=== PATIENT | male | born 1950 | race Caucasian/White ===

== ENCOUNTER 2021-12-23 00:02 | Observation (INO) | payer MEDICARE ==
[2021-12-23 00:22] VITALS: BMI 26.6
[2021-12-23] MEDS ORDERED: Calcium Carbonate 500 MG ChewTAB PO PRN (00:35)
[2021-12-23] MEDS ORDERED: Acetaminophen 325 MG TAB PO PRN (00:35)
[2021-12-23] MEDS ORDERED: Ondansetron PF 4 MG/2 ML Vial IVP PRN (00:35)
[2021-12-23] MEDS ORDERED: Ketorolac Tromethamine 30 MG/ML VIAL IVP SCH (00:45)
[2021-12-23] MEDS ORDERED: Cephalexin 500 MG CAP PO SCH (00:45)
[2021-12-23] MEDS ORDERED: Metoclopramide HCl 10 MG/2 ML VIAL IVP SCH (00:45)
[2021-12-23] MEDS ORDERED: diphenhydrAMINE 50 MG/ML VIAL IVP SCH (00:45)
[2021-12-23] MEDS: Lactated Ringer's 500 ML IV SCH ×10 (01:13→11:07)
[2021-12-23] MEDS: Amoxicillin/Potassium Clav 875 MG TAB PO SCH ×2 (01:23→12:51)
[2021-12-23] MEDS: Oxymetazoline HCl 0.05% ( 15 ML ) NASAL SCH ×2 (01:23→12:37)
[2021-12-23 05:13] LABS: #Basophils 0.1 10x3/uL (0.0-0.2); #Eosinphils 0.1 10x3/uL (0.0-0.5); #Monocytes 1.4 10x3/uL (0.0-1.1); #Neutrophils 7.8 10x3/uL (1.5-8.4); %Basophils 0.4 % (0.0-2.0); %Eosinophils 0.9 % (0.0-6.0); %Lymphocytes 19.3 % (18.0-47.0); %Monocytes 11.9 % (0.0-10.0); %Neutrophils 67.1 % (40.0-75.0); Hemoglobin 12.3 g/dL (13.5-17.5); Mean Corpuscular HGB CONC 33.7 g/dL (32.0-36.0); Mean Corpuscular Hemoglobin 31.6 pg (27.0-33.0); Mean Corpuscular Volume 93.8 fl (81.2-95.1); Mean Platelet Volume 9.8 fl (7.4-10.4); Platelet Count 182 10x3/uL (150-450); RBC Distribution Width 13.2 % (11.5-14.5); Red Blood Cell (RBC) Count 3.89 10x6/uL (4.32-5.72); White Blood Cell (WBC) Count 11.6 10x3/uL (3.5-10.5)
[2021-12-23 05:55] LABS: Anion Gap 11 mmol/L (10-20); BUN (Urea Nitrogen) 13 mg/dL (8.4-25.7); Calc. Creatinine Clearance 64 mL/min (70-130); Calcium 10.8 mg/dL (7.8-10.44); Carbon Dioxide 23 mmol/L (23-31); Chloride 112 mmol/L (98-107); Glucose 95 mg/dL (80-115); Potassium 3.9 mmol/L (3.5-5.1); Sodium 142 mmol/L (136-145)
[2021-12-23] MEDS ORDERED: Fluticasone Propionate Nasal Spray 16 gm Bottle NASAL SCH (09:00)
[2021-12-23] MEDS ORDERED: lamoTRIgine 100 MG TAB PO SCH (09:00)
[2021-12-23] MEDS ORDERED: FLUoxetine HCl 20 MG CAP PO SCH (09:00)
[2021-12-23] MEDS ORDERED: Enoxaparin Sodium 40 MG/0.4 ML SYRINGE SC SCH (09:00)
[2021-12-23] MEDS ORDERED: Famotidine 20 MG TAB PO SCH (09:00)
[2021-12-23 12:52] VITALS: TEMP 97.5
[2021-12-23 16:50] VITALS: BP 113/69
[2021-12-23] MEDS ORDERED: Lorazepam 1 MG TAB PO SCH (21:00)
== END 2021-12-23 18:32 | disposition home or self-care (01) ==
LOC: CSHTELE 00:02
PROVIDERS: ADMIT Student in an Organized Health Care Education/Training Program; ATTEND Family Medicine
DX: R41.0 Disorientation, unspecified (principal); J32.9 Chronic sinusitis, unspecified; F31.9 Bipolar disorder, unspecified; F42.9 Obsessive-compulsive disorder, unspecified; N18.30 Chronic kidney disease, stage 3 unspecified; Z79.899 Other long term (current) drug therapy
CPT/HCPCS: 70551; 80048; 84484; 85025; 96372; 96374; 96375; 97116; 97139; 97535; G0378; J1200; J1650; J1885; J7120

== ENCOUNTER 2022-05-28 13:27 | Emergency (ER) | payer MEDICARE ==
[2022-05-28] MEDS ORDERED: Fluorescein Opthalmic Strip ONE (13:54)
[2022-05-28] MEDS ORDERED: Tetracaine 0.5% PF 4 ML BOT ONE (13:54)
[2022-05-28] MEDS ORDERED: AcetaZOLAMIDE 250 MG TAB PO SCH (14:30)
[2022-05-28] MEDS ORDERED: Pilocarpine 2% Ophth Drops 15 ML BOT R EYE SCH (14:30)
[2022-05-28] MEDS ORDERED: AcetaZOLAMIDE ER 500 MG CAP PO SCH (14:30)
[2022-05-28] MEDS ORDERED: Timolol 0.5% Ophth Soln 5 ml Bottle R EYE SCH (14:30)
== END 2022-05-28 14:56 | disposition home or self-care (01) ==
LOC: CSHERS 13:27
DX: H54.61 Unqualified visual loss, right eye, normal vision left eye (principal)
CPT/HCPCS: 99283; J7620

== ENCOUNTER 2023-03-25 15:35 | Inpatient (IN) | payer MEDICARE ==
[~2023-03-25 15:35] MED LIST: Iopamidol 370 76% 100 ML VIAL ONE
[2023-03-25 16:15] LABS: Actual Bicarbonate (HCO3v) 26.8 mEq/L (22-28); Base Excess 1.3 mEq/L (-2 - +2); Calcium, Ionized (venous) 1.37 mmol/L (1.16-1.32); Chloride (VBG) 108 mmol/L (98-106); Hematocrit-VBG 39 % (42.0-52.0); Hemoglobin (Hb) 13.1 g/dL (12.6-17.4); Potassium (VBG) 4.09 mmol/L (3.70-5.30); Puncture Site Other Site; RapidComm Collect By CBN; Sodium 142.7 mmol/L (133-146); pH (venous) 7.384 (7.32-7.43)
[2023-03-25 16:22] LABS: #Eosinphils 0.2 10x3/uL (0.0-0.5); #Monocytes 0.6 10x3/uL (0.0-1.1); #Neutrophils 4.1 10x3/uL (1.5-8.4); %Basophils 0.6 % (0.0-2.0); %Eosinophils 3.7 % (0.0-6.0); %Lymphocytes 22.5 % (18.0-47.0); %Monocytes 9.4 % (0.0-10.0); %Neutrophils 63.5 % (40.0-75.0); Hemoglobin 12.2 g/dL (13.5-17.5); Mean Corpuscular HGB CONC 33.5 g/dL (32.0-36.0); Mean Corpuscular Hemoglobin 32.2 pg (27.0-33.0); Mean Platelet Volume 10.1 fl (7.4-10.4); Platelet Count 174 10x3/uL (150-450); RBC Distribution Width 12.7 % (11.5-14.5); Red Blood Cell (RBC) Count 3.79 10x6/uL (4.32-5.72); White Blood Cell (WBC) Count 6.5 10x3/uL (3.5-10.5)
[2023-03-25 16:35] LABS: ALT (SGPT) 10 U/L (8-55); AST (SGOT) 14 U/L (5-34); Albumin 3.9 g/dL (3.4-4.8); Alkaline Phosphatase 76 U/L (40-110); Anion Gap 15 mmol/L (10-20); BUN (Urea Nitrogen) 21 mg/dL (8.4-25.7); Bilirubin, Total 0.2 mg/dL (0.2-1.2); Calc. Creatinine Clearance 0 mL/min (70-130); Calcium 10.5 mg/dL (7.8-10.44); Carbon Dioxide 22 mmol/L (23-31); Chloride 109 mmol/L (98-107); Estimated GFR 39; Globulin 2.4 g/dL (2.4-3.5); Glucose 105 mg/dL (83-110); Potassium 4.2 mmol/L (3.5-5.1); Protein, Total 6.3 g/dL (5.8-8.1); Sodium 142 mmol/L (136-145)
[2023-03-25 18:38] LABS: Bilirubin Neg (Negative); Blood, Urine Negative (Negative); Clarity Clear (Clear); Glucose, Urine (Dipstick) Normal (Negative); Ketone, Urine Negative (Negative); Leukocyte Negative (Negative); Nitrite Negative (Negative); Protein, Urine (Dipstick) Negative (Neg-Trace); Urobilinogen Normal mg/dL (Less than 2)
[2023-03-25 18:52] LABS: Bacteria/HPF Rare-Few HPF (None Seen); CAUTI Indications for Culture Alt mental st,lethar; RBC/HPF None Seen HPF (0-3); Squamous Epithelial 0-3 HPF (0-3); Urine Culture Reflex No No; WBC/HPF 0-3 HPF (0-3)
[2023-03-25] MEDS ORDERED: Acetaminophen 325 MG TAB PO PRN (19:14)
[2023-03-25] MEDS ORDERED: Ondansetron PF 4 MG/2 ML Vial IVP PRN (19:14)
[2023-03-25] MEDS ORDERED: Senokot S 8.6-50 MG TAB PO PRN (19:14)
[2023-03-25] MEDS ORDERED: Calcium Carbonate 500 MG ChewTAB PO PRN (19:14)
[2023-03-25] MEDS ORDERED: Lactated Ringer's 1,000 ML IV SCH (19:15)
[2023-03-25 19:22] LABS: Amphetamine Not Detected (NotDetected); Barbiturates Screen Not Detected (NotDetected); Benzodiazepine Screen Detected (NotDetected); Cocaine Metabolite Screen Not Detected (NotDetected); Methadone Not Detected (NotDetected); Methamphetamine Not Detected (NotDetected); Opiate Screen Not Detected (NotDetected); Oxycodone Screen Not Detected (NotDetected); Phencyclidine (PCP) Not Detected (NotDetected); THC/Cannabinoid Screen Not Detected (NotDetected); Tricyclic Screen Not Detected (NotDetected)
[2023-03-25 21:58] VITALS: BMI 27.6
[2023-03-25] MEDS ORDERED: Lorazepam 1 MG TAB PO SCH (22:00)
[2023-03-25] MEDS ORDERED: OLANZapine 5 MG TAB PO SCH (22:00)
[2023-03-25] MEDS ORDERED: Lidocaine 4% Patch TD SCH (22:00)
[2023-03-26 05:27] LABS: Anion Gap 9 mmol/L (10-20); BUN (Urea Nitrogen) 18 mg/dL (8.4-25.7); CK (CPK) 23 U/L (30-200); Calc. Creatinine Clearance 57 mL/min (70-130); Calcium 10.6 mg/dL (7.8-10.44); Carbon Dioxide 26 mmol/L (23-31); Cardiac Risk 4.6 (Less than 4.5); Chloride 115 mmol/L (98-107); Cholesterol 134 mg/dl (< 200 Desired); Estimated GFR 48; Glucose 85 mg/dL (83-110); HDL Cholesterol 29 mg/dL (>60 Neg Risk); LDL Cholesterol, Calculated 80 mg/dL; Potassium 4.3 mmol/L (3.5-5.1); Sodium 146 mmol/L (136-145); Triglycerides 126 mg/dL (Less than 150)
[2023-03-26] MEDS ORDERED: FLUoxetine HCl 20 MG CAP PO SCH (09:00)
[2023-03-26] MEDS ORDERED: lamoTRIgine 100 MG TAB PO SCH ×2 (09:00→22:00)
[2023-03-26] MEDS ORDERED: Transdermal Patch Removal TOP SCH (10:00)
[2023-03-26] MEDS ORDERED: OLANZapine 5 MG TAB PO SCH (21:00)
[2023-03-26] MEDS: Atorvastatin Calcium 40 MG TAB PO SCH (22:50)
[2023-03-26] MEDS: Lorazepam 1 MG TAB PO SCH (22:51)
[2023-03-27] MEDS ORDERED: Metoprolol Tartrate 5 MG/5 ML VIAL IVP SCH (00:15)
[2023-03-27] MEDS ORDERED: Magnesium 2 GM/50 ML(in water) 2 GM in Premix Bag 1 BAG IVPB SCH (00:15)
[2023-03-27] MEDS: Apixaban 5 MG TAB PO SCH ×2 (00:47→12:53)
[2023-03-27] MEDS ORDERED: dilTIAZem 25 MG/5 ML VIAL SLOW IVP SCH (01:15)
[2023-03-27] MEDS ORDERED: Digoxin 0.5 MG/2 ML AMP SLOW IVP SCH ×2 (04:45)
[2023-03-27] MEDS ORDERED: Sodium Chloride 0.9% 500 ML IV SCH (05:00)
[2023-03-27] MEDS: Aspirin 81 mg Enteric Coated Tablet PO SCH (08:48)
[2023-03-27] MEDS: dilTIAZem CD 120 MG CAP PO SCH (08:49)
[2023-03-27 11:47] LABS: Magnesium 2.4 mg/dL (1.6-2.6)
[2023-03-27] MEDS ORDERED: FLUoxetine HCl 20 MG CAP PO SCH ×2 (13:00→21:00)
[2023-03-27] MEDS: Lorazepam 1 MG TAB PO SCH (21:36)
[2023-03-27] MEDS: Atorvastatin Calcium 40 MG TAB PO SCH (21:36)
[2023-03-27] MEDS: OLANZapine 5 MG TAB PO SCH (21:36)
[2023-03-27] MEDS: lamoTRIgine 100 MG TAB PO SCH (21:37)
[2023-03-28] MEDS: Apixaban 5 MG TAB PO SCH ×2 (00:30→12:25)
[2023-03-28] MEDS: Aspirin 81 mg Enteric Coated Tablet PO SCH (09:03)
[2023-03-28] MEDS: FLUoxetine HCl 20 MG CAP PO SCH (09:04)
[2023-03-28] MEDS: dilTIAZem CD 120 MG CAP PO SCH (09:04)
[2023-03-28 11:02] LABS: Anion Gap 16 mmol/L (10-20); BUN (Urea Nitrogen) 18 mg/dL (8.4-25.7); Calc. Creatinine Clearance 55 mL/min (70-130); Calcium 11.5 mg/dL (7.8-10.44); Carbon Dioxide 20 mmol/L (23-31); Chloride 112 mmol/L (98-107); Estimated GFR 45; Glucose 89 mg/dL (83-110); Magnesium 2.1 mg/dL (1.6-2.6); Potassium 4.7 mmol/L (3.5-5.1); Sodium 143 mmol/L (136-145)
[2023-03-28] MEDS ORDERED: Flecainide 50 MG TAB PO SCH (12:00)
[2023-03-28 13:42] LABS: CCP IgG Antibody Less than 0.4 EliAU/mL (<7 Negative); Rheumatoid Factor IgA Antibody 1.3 IU/mL (<14 Negative); Rheumatoid Factor IgM Antibody Less than 0.6 IU/mL (<3.5 Negative)
[2023-03-28] MEDS: OLANZapine 5 MG TAB PO SCH (21:13)
[2023-03-28] MEDS: Atorvastatin Calcium 40 MG TAB PO SCH (21:13)
[2023-03-28] MEDS: Lorazepam 1 MG TAB PO SCH (21:13)
[2023-03-28] MEDS: lamoTRIgine 100 MG TAB PO SCH (21:13)
[2023-03-28] MEDS: Flecainide 50 MG TAB PO SCH (21:14)
[2023-03-29] MEDS: Apixaban 5 MG TAB PO SCH ×2 (01:24→14:19)
[2023-03-29] MEDS: Flecainide 50 MG TAB PO SCH ×2 (10:41→20:49)
[2023-03-29] MEDS: FLUoxetine HCl 20 MG CAP PO SCH (10:41)
[2023-03-29] MEDS: dilTIAZem CD 120 MG CAP PO SCH (10:42)
[2023-03-29] MEDS: OLANZapine 5 MG TAB PO SCH (20:48)
[2023-03-29] MEDS: Atorvastatin Calcium 40 MG TAB PO SCH (20:49)
[2023-03-29] MEDS: Lorazepam 1 MG TAB PO SCH (20:49)
[2023-03-29] MEDS: lamoTRIgine 100 MG TAB PO SCH (20:49)
[2023-03-30] MEDS: Apixaban 5 MG TAB PO SCH ×2 (02:47→13:30)
[2023-03-30 05:55] VITALS: TEMP 97.7
[2023-03-30] MEDS: dilTIAZem CD 120 MG CAP PO SCH (07:59)
[2023-03-30] MEDS: FLUoxetine HCl 20 MG CAP PO SCH (08:00)
[2023-03-30] MEDS: Flecainide 50 MG TAB PO SCH (08:00)
[2023-03-30 10:56] LABS: Anion Gap 12 mmol/L (10-20); BUN (Urea Nitrogen) 22 mg/dL (8.4-25.7); Calc. Creatinine Clearance 60 mL/min (70-130); Carbon Dioxide 23 mmol/L (23-31); Chloride 109 mmol/L (98-107); Estimated GFR 50; Glucose 116 mg/dL (83-110); Potassium 4.2 mmol/L (3.5-5.1); Sodium 140 mmol/L (136-145)
[2023-03-30 13:02] VITALS: BP 122/94
== END 2023-03-30 14:35 | disposition home or self-care (01) | DRG 65 ==
LOC: CSHERS 15:35 → CSHTELE 21:35 → OBSVTOIN 03-26 13:48
PROVIDERS: ADMIT Student in an Organized Health Care Education/Training Program; ATTEND Internal Medicine
DX: I63.9 Cerebral infarction, unspecified (principal); G81.94 Hemiplegia, unspecified affecting left nondominant side; N17.9 Acute kidney failure, unspecified; I47.1 Supraventricular tachycardia; I45.10 Unspecified right bundle-branch block; F41.9 Anxiety disorder, unspecified; N18.30 Chronic kidney disease, stage 3 unspecified; F42.9 Obsessive-compulsive disorder, unspecified; F31.70 Bipolar disorder, currently in remission, most recent episode unspecified; E86.0 Dehydration; I48.0 Paroxysmal atrial fibrillation; Z20.822 Contact with and (suspected) exposure to COVID-19; M17.12 Unilateral primary osteoarthritis, left knee; D63.1 Anemia in chronic kidney disease; E21.3 Hyperparathyroidism, unspecified; Z79.899 Other long term (current) drug therapy; Z90.49 Acquired absence of other specified parts of digestive tract
CPT/HCPCS: 0042T; 36415; 36416; 70450; 70551; 71045; 80048; 80053; 80061; 80306; 81001; 82550; 82607; 82805; 83520; 83735; 84484; 85025; 86200; 93005; 93010; 93306; 96372; G0378; J1160; J1650; J3475; J7030; J7120; Q9967